=== PATIENT | female | born 1995 | race Two or more races ===

== ENCOUNTER 2018-09-22 11:58 | Emergency (ER) | payer SELFPAY ==
[~2018-09-22] VITALS: Ht 162.6 cm; Wt 50.0 kg
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
[2018-09-22] MEDS ORDERED: NAPR-683 PO (13:33)
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
[2018-09-22 14:00] VITALS: BP 102/72
== END 2018-09-22 14:04 | disposition home or self-care (01) ==
LOC: ER 11:58
DX: S89.81XA Other specified injuries of right lower leg, initial encounter (principal); Z90.89 Acquired absence of other organs; V43.52XA Car driver injured in collision with other type car in traffic accident, initial encounter; Y93.89 Activity, other specified; Y92.410 Unspecified street and highway as the place of occurrence of the external cause; Y99.8 Other external cause status
CPT/HCPCS: 73562; 99284